=== PATIENT | female | born 1990 | race Caucasian/White ===

== ENCOUNTER → 2017-09-17 10:19 | Outpatient (CLI) | payer OTHER, SELFPAY ==
[2017-09-17 11:11] LABS: hCG Titer Quant., Serum 274 mIU/mL (<9 non-preg)
== END ==
PROVIDERS: Visit Provider Obstetrics & Gynecology
DX: O20.0 Threatened abortion (principal); Z3A.00 Weeks of gestation of pregnancy not specified
CPT/HCPCS: 36415; 84702; 86850; 86900

== ENCOUNTER → 2017-09-19 07:09 | Outpatient (CLI) | payer OTHER, SELFPAY ==
[2017-09-19 10:44] LABS: hCG Titer Quant., Serum 253 mIU/mL (<9 non-preg)
== END ==
PROVIDERS: Nurse Practitioner Women's Health; Visit Provider Obstetrics & Gynecology
DX: O20.0 Threatened abortion (principal); Z3A.00 Weeks of gestation of pregnancy not specified
CPT/HCPCS: 36415; 84702

== ENCOUNTER → 2017-10-02 17:00 | Outpatient (CLI) | payer OTHER, SELFPAY ==
[2017-10-02 18:04] LABS: hCG Titer Quant., Serum 29 mIU/mL (<9 non-preg)
== END ==
PROVIDERS: Visit Provider Obstetrics & Gynecology
DX: O03.9 Complete or unspecified spontaneous abortion without complication (principal); Z3A.00 Weeks of gestation of pregnancy not specified
CPT/HCPCS: 36415; 84702

== ENCOUNTER → 2018-03-26 16:33 | Outpatient (CLI) | payer OTHER, SELFPAY | PROVIDERS: Visit Provider Obstetrics & Gynecology | DX: N97.9 Female infertility, unspecified (principal) | CPT/HCPCS: 76856; 93976 ==

== ENCOUNTER → 2018-04-08 13:01 | Outpatient (CLI) | payer OTHER, SELFPAY ==
[2018-04-08 14:00] LABS: Follicle Stimulating Hormone 7.1 mIU/mL; Prolactin 13.9 ng/mL; T4 Free Direct 1.02 ng/dL (0.76-1.46); Thyroid Stim Hormone (TSH) 1.18 uIU/mL (0.358-3.74)
== END ==
PROVIDERS: Visit Provider Obstetrics & Gynecology
DX: N97.9 Female infertility, unspecified (principal)
CPT/HCPCS: 83001; 84146; 84439; 84443

== ENCOUNTER → 2018-04-13 12:00 | Outpatient (CLI) | payer OTHER, SELFPAY ==
--- NOTE | 2018-04-14 06:33 | PCM.OP.BLANK ---
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 Speculum was placed in the vagina and the cervix prepped with Betadine and the HSG catheter was easily introduced into the uterus and speculum removed. while pushing radiopaque dye into the uterus via the HSG catheter the radiologist took multiple images and views and confirmed bilateral tubal patency seen. No gross uterine filling defects or abnormalities were seen. All instruments removed from the vagina and the uterus without complication. Patient tolerated the procedure well.
== END ==
PROVIDERS: Visit Provider Obstetrics & Gynecology
DX: N97.9 Female infertility, unspecified (principal)
CPT/HCPCS: 58340; 74740; Q9967

== ENCOUNTER → 2018-05-31 14:28 | Outpatient (CLI) | payer OTHER, SELFPAY ==
[2018-05-31 16:17] LABS: hCG Titer Quant., Serum 75 mIU/mL (<9 non-preg)
== END ==
PROVIDERS: Referring Provider Obstetrics & Gynecology; Visit Provider Obstetrics & Gynecology
DX: N91.2 Amenorrhea, unspecified (principal)
CPT/HCPCS: 36415; 84702

== ENCOUNTER → 2018-06-02 14:30 | Outpatient (CLI) | payer OTHER, SELFPAY ==
[2018-06-02 15:26] LABS: hCG Titer Quant., Serum 200 mIU/mL (<9 non-preg)
== END ==
PROVIDERS: Visit Provider Obstetrics & Gynecology
DX: N91.2 Amenorrhea, unspecified (principal)
CPT/HCPCS: 36415; 84702

== ENCOUNTER → 2018-06-27 11:52 | Outpatient (CLI) | payer OTHER, SELFPAY ==
[2018-06-27 10:51] VITALS: BMI 24.4
[2018-06-27 12:20] LABS: Absolute Lymphocyte Count 1.75 X10^3/ul (0.83-4.51); Absolute Neutrophil Count 4.9 X10^3/uL (2.0-7.7); Basophil# 0.07 X10^3/uL; Eosinophil# 0.06 X10^3/uL; Eosinophils% 0.8 % (0-5); Hematocrit 38.7 % (37-47); Hemoglobin 13.5 g/dl (12.0-15.0); Lymphocyte # 1.75 X10^3/ul (4.0); Lymphocyte % 23.8 % (19-41); Mean Corp Hgb Conc 34.9 g/gl (32-36); Mean Corpuscular Hgb 29.9 pg (27.0-32.0); Mean Corpuscular Volume 85.6 fL (81-99); Mean Platelet Vol. 9.3 fl (6.2-12.0); Monocyte# 0.56 X10^3/uL; Monocyte% 7.6 % (0-10); Neutrophil # 4.89 X10^3/uL (2.7-7.7); Neutrophil % 66.7 % (47-70); Platelet Count 303 K/mm3 (150-450); RBC Distribution Width CV 12.1 % (11.6-14.6); RBC Distribution Width SD 36.9 fl (35.1-43.9); Red Blood Count 4.52 M/mm3 (4.2-5.4); White Blood Count 7.3 K/mm3 (4.4-11.0)
[2018-06-27 12:35] LABS: POSITIVE COUNT NO; POSITIVE DIFFERENTIAL NO; POSITIVE MORPHOLOGY NO
[2018-06-27 13:35] LABS: HIV - WCH Non-Reactive (Nonreactive); Rubella IgG > 500.0 IU/mL
[2018-06-27 19:42] LABS: Chlamydia Trachomatis by PCR Negative (Negative); Neisserai gonorrhoeae by PCR Negative (Negative); Probe Check PASS; Sample Adequacy Control PASS; Specimen Processing Control PASS
[2018-06-28 08:30] LABS: HEPATITIS B SURFACE AG Negative (Negative)
[2018-06-29 02:03] LABS: Rapid Plasmin Reagin (RPR) NONREACTIVE (NONREACTIVE)
[2018-07-03 16:58] LABS: HPV APTIMA, High Risk Negative (Negative)
== END ==
PROVIDERS: Nurse Practitioner Women's Health; Referring Provider Obstetrics & Gynecology; Visit Provider Obstetrics & Gynecology
DX: Z34.90 Encounter for supervision of normal pregnancy, unspecified, unspecified trimester (principal); Z12.4 Encounter for screening for malignant neoplasm of cervix
CPT/HCPCS: 36415; 85025; 86592; 86703; 86762; 86850; 86900; 87086; 87088; 87340; 87491; 87591; 87624; 88175; G0145

== ENCOUNTER → 2018-11-16 14:22 | Outpatient (CLI) | payer OTHER, SELFPAY ==
[2018-11-16 14:03] VITALS: BMI 28.6
[2018-11-16 15:11] LABS: Absolute Lymphocyte Count 1.48 X10^3/ul (0.83-4.51); Absolute Neutrophil Count 6.8 X10^3/uL (2.0-7.7); Basophil# 0.01 X10^3/uL; Basophil% 0.1 % (0-1); Eosinophil# 0.06 X10^3/uL; Eosinophils% 0.7 % (0-5); Hematocrit 33.8 % (37-47); Hemoglobin 11.4 g/dl (12.0-15.0); Lymphocyte # 1.48 X10^3/ul (4.0); Lymphocyte % 16.7 % (19-41); Mean Corp Hgb Conc 33.7 g/gl (32-36); Mean Corpuscular Hgb 29.6 pg (27.0-32.0); Mean Corpuscular Volume 87.8 fL (81-99); Mean Platelet Vol. 8.6 fl (6.2-12.0); Monocyte# 0.54 X10^3/uL; Monocyte% 6.1 % (0-10); Neutrophil # 6.75 X10^3/uL (2.7-7.7); Neutrophil % 76.2 % (47-70); POSITIVE COUNT NO; POSITIVE DIFFERENTIAL NO; POSITIVE MORPHOLOGY NO; Platelet Count 308 K/mm3 (150-450); RBC Distribution Width CV 12.8 % (11.6-14.6); RBC Distribution Width SD 39.8 fl (35.1-43.9); Red Blood Count 3.85 M/mm3 (4.2-5.4); White Blood Count 8.9 K/mm3 (4.4-11.0)
[2018-11-16 15:33] LABS: Glucose Challenge Gest 1H 50g 168 mg/dL (70-140)
== END ==
PROVIDERS: Visit Provider Obstetrics & Gynecology
DX: Z34.00 Encounter for supervision of normal first pregnancy, unspecified trimester (principal)
CPT/HCPCS: 36415; 82950; 85025

== ENCOUNTER → 2018-11-23 06:50 | Outpatient (CLI) | payer OTHER, SELFPAY ==
[2018-11-16 14:03] VITALS: BMI 28.6
[2018-11-23 07:39] LABS: Glucose GTT-Gestation. Fasting 85 mg/dL (<105)
[2018-11-23 08:37] LABS: Glucose GTT-Gestational 1 Hr 212 mg/dL (<190)
[2018-11-23 09:57] LABS: Glucose GTT-Gestational 2 Hr 203 mg/dL (<165)
[2018-11-23 11:05] LABS: Glucose GTT-Gestational 3 Hr 85 L (<145)
== END ==
PROVIDERS: Referring Provider Obstetrics & Gynecology; Visit Provider Obstetrics & Gynecology
DX: O99.810 Abnormal glucose complicating pregnancy (principal)
CPT/HCPCS: 36415; 82951; 82952

== ENCOUNTER 2018-11-28 09:57 | Outpatient (RCR) | payer OTHER, SELFPAY ==
[2018-11-16 14:03] VITALS: BMI 28.6
== END 2018-12-04 23:59 ==
LOC: NS 09:57
PROVIDERS: Visit Provider Obstetrics & Gynecology
DX: O24.419 Gestational diabetes mellitus in pregnancy, unspecified control (principal)
CPT/HCPCS: 97802

== ENCOUNTER 2018-12-06 15:58 | Outpatient (RCR) | payer OTHER, SELFPAY ==
[2018-11-29 15:31] VITALS: BMI 28.6
== END 2018-12-06 23:59 | disposition home or self-care (01) ==
LOC: DC 15:58
PROVIDERS: Visit Provider Obstetrics & Gynecology
DX: O24.419 Gestational diabetes mellitus in pregnancy, unspecified control (principal); Z3A.00 Weeks of gestation of pregnancy not specified
CPT/HCPCS: G0108

== ENCOUNTER → 2019-01-11 12:28 | Outpatient (CLI) | payer OTHER, SELFPAY ==
[2018-12-27 16:17] VITALS: BMI 28.6
--- NOTE | 2019-01-11 12:30 | US_ITS ---
STUDY: SECOND AND THIRD TRIMESTER OBSTETRICAL ULTRASOUND - LIMITED REASON FOR EXAM: Female, 28 years old. Growth. LMP: 05/02/2018 PRIOR ULTRASOUND: None. TECHNIQUE: Transabdominal. TECHNICAL QUALITY: Adequate. FINDINGS: There is a single intrauterine fetus. The fetus is in a cephalic presentation. There is demonstrated cardiac activity with a heart rate of 139 bpm. There is a normal amniotic fluid volume. The largest amniotic fluid pocket measures 5.4 cm. The amniotic fluid index (HERVE) is 13.0 cm. The placenta is fundal. There are Grade 2 placental changes. Cervix not visualized. Adnexa not visualized. BIOMETRY: BPD: 9.1 cm: 37 weeks, 0 days HC: 32.6 cm: 37 weeks, 0 days AC: 33.1 cm: 37 weeks, 0 days FL: 7.1 cm: 36 weeks, 5 days Calculated biometric ratios are within normal limits. Age by LMP: 36 weeks, 2 days. PIETER by LMP: 02/06/2019. age by prior US: weeks, days. PIETER by prior US: . age by current US: 37 weeks, 0 days. PIETER by current US: 02/01/2019. Estimated weight: 3054 grams, +/- 446 grams, 69 percentile. US/OB Limited With Biometrics IMPRESSION: Single living intrauterine gestation with an estimated gestational age by ultrasound of 37 weeks 0 days. Estimated date of delivery 02/01/2019 Electronically Signed: Timothy Hines MD at 4:14 EDT , Service support ,
== END ==
PROVIDERS: Referring Provider Obstetrics & Gynecology; Visit Provider Obstetrics & Gynecology
DX: Z34.00 Encounter for supervision of normal first pregnancy, unspecified trimester (principal)
CPT/HCPCS: 76816; 87081

== ENCOUNTER 2019-01-15 18:55 | Outpatient (CLI) | payer OTHER, SELFPAY ==
[2019-01-11 15:10] VITALS: BMI 28.6
[2019-01-15 19:12] VITALS: BMI 31.3
[2019-01-15 20:52] LABS: Hematocrit 38.1 % (37-47); Hemoglobin 12.9 g/dl (12.0-15.0); Mean Corp Hgb Conc 33.9 g/gl (32-36); Mean Corpuscular Hgb 29.6 pg (27.0-32.0); Mean Corpuscular Volume 87.4 fL (81-99); Mean Platelet Vol. 9.7 fl (6.2-12.0); Platelet Count 274 K/mm3 (150-450); RBC Distribution Width CV 13.3 % (11.6-14.6); RBC Distribution Width SD 42.6 fl (35.1-43.9); Red Blood Count 4.36 M/mm3 (4.2-5.4); White Blood Count 9.3 K/mm3 (4.4-11.0)
[2019-01-15 20:59] LABS: Scan Indicated on CBC? Y/N NO
[2019-01-15 21:02] LABS: International Normalized Ratio 0.9; Partial Thromboplast Time 26.1 Seconds (24.1-36.2)
[2019-01-15 21:02] LABS: Protein, Urine (Random) 6.7 mg/dL (<11.9); Protein:Creat Ratio 271 mg/g CRE (0-200)
[2019-01-15 21:04] LABS: AST(SGOT) 23 U/L (15-37); Alanine Aminotransfer ALT/SGPT 23 U/L (13-56); Creatinine, Serum 0.86 mg/dL (0.55-1.02); EST Glomerular Filtration Rate 82 mL/min (>60); Est Glom Filt Rate - Afr Amer 99 mL/min (>60); Estimated Creatinine Clearance 93.02 ml/min; Uric Acid 6.6 mg/dL (2.6-6.0)
[2019-01-15 22:17] VITALS: RESP 18
--- NOTE | 2019-01-20 04:16 | OB.TRI.PN ---
Progress Notes Date of Service: 01/15/19 Progress Note: Patient presents for vaginal bleeding, denies any significant contractions and admits good movement. She also complains of some intermittent headache heart tones 130 moderate variability reactive no decelerations category 1 tracing [place]: Irregular contractions Assessment and plan bleeding and headache, reassuring status and no active labor. Normal blood pressures DC home kick counts labor precautions and preeclampsia precautions Laboratory Studies: Laboratory Tests 01/15/19 01/15/19 01/15/19 Range/Units 20:24 20:24 20:24 WBC 9.3 (4.4-11.0) K/mm3 RBC 4.36 (4.2-5.4) M/mm3 Hgb 12.9 (12.0-15.0) g/dl Hct 38.1 (37-47) % MCV 87.4 (81-99) fL MCH 29.6 (27.0-32.0) pg MCHC 33.9 (32-36) g/gl RDW 13.3 (11.6-14.6) % RDW Differential 42.6 (35.1-43.9) fl Plt Count 274 (150-450) K/mm3 MPV 9.7 (6.2-12.0) fl PT 12.0 (11.7-14.9) SECONDS INR 0.9 APTT 26.1 (24.1-36.2) Seconds Creatinine 0.86 (0.55-1.02) mg/dL Estim Creat Clear Calc 93.02 ml/min Est GFR (MDRD) Af Amer 99 (>60) mL/min Est GFR (MDRD) Non-Af 82 (>60) mL/min Uric Acid 6.6 H (2.6-6.0) mg/dL AST 23 (15-37) U/L ALT 23 (13-56) U/L U Random Total Protein (<11.9) mg/dL Urine Creatinine (NO RANGE EST.) mg/dL Protein/Creatinin Ratio (0-200) mg/g CRE 01/15/19 Range/Units 20:20 WBC (4.4-11.0) K/mm3 RBC (4.2-5.4) M/mm3 Hgb (12.0-15.0) g/dl Hct (37-47) % MCV (81-99) fL MCH (27.0-32.0) pg MCHC (32-36) g/gl RDW (11.6-14.6) % RDW Differential (35.1-43.9) fl Plt Count (150-450) K/mm3 MPV (6.2-12.0) fl PT (11.7-14.9) SECONDS INR APTT (24.1-36.2) Seconds Creatinine (0.55-1.02) mg/dL Estim Creat Clear Calc ml/min Est GFR (MDRD) Af Amer (>60) mL/min Est GFR (MDRD) Non-Af (>60) mL/min Uric Acid (2.6-6.0) mg/dL AST (15-37) U/L ALT (13-56) U/L U Random Total Protein 6.7 (<11.9) mg/dL Urine Creatinine 24.70 (NO RANGE EST.) mg/dL Protein/Creatinin Ratio 271 H (0-200) mg/g CRE
== END 2019-01-15 22:17 | disposition home or self-care (01) ==
LOC: WPOUT 18:58 → WP 18:58
PROVIDERS: Visit Provider Obstetrics & Gynecology
DX: O46.90 Antepartum hemorrhage, unspecified, unspecified trimester (principal); Z3A.00 Weeks of gestation of pregnancy not specified
CPT/HCPCS: 36415; 59025; 59050; 82565; 82570; 84156; 84450; 84460; 84550; 85027; 85610; 85730; 99218; G0378

== ENCOUNTER → 2019-01-18 13:59 | Outpatient (CLI) | payer OTHER, SELFPAY ==
[2019-01-18 13:09] VITALS: BMI 31.8
[2019-01-18 14:45] LABS: Absolute Lymphocyte Count 2.21 X10^3/ul (0.83-4.51); Absolute Neutrophil Count 5.6 X10^3/uL (2.0-7.7); Basophil# 0.01 X10^3/uL; Basophil% 0.1 % (0-1); Eosinophil# 0.05 X10^3/uL; Eosinophils% 0.6 % (0-5); Hemoglobin 12.1 g/dl (12.0-15.0); Lymphocyte # 2.21 X10^3/ul (4.0); Lymphocyte % 26.1 % (19-41); Mean Corp Hgb Conc 33.6 g/gl (32-36); Mean Corpuscular Hgb 29.5 pg (27.0-32.0); Mean Corpuscular Volume 87.8 fL (81-99); Mean Platelet Vol. 9.9 fl (6.2-12.0); Monocyte# 0.55 X10^3/uL; Monocyte% 6.5 % (0-10); Neutrophil # 5.63 X10^3/uL (2.7-7.7); Neutrophil % 66.5 % (47-70); Platelet Count 257 K/mm3 (150-450); RBC Distribution Width CV 13.5 % (11.6-14.6); RBC Distribution Width SD 43.2 fl (35.1-43.9); White Blood Count 8.5 K/mm3 (4.4-11.0)
[2019-01-18 14:46] LABS: POSITIVE COUNT NO; POSITIVE DIFFERENTIAL NO; POSITIVE MORPHOLOGY NO
[2019-01-18 14:56] LABS: Protein, Urine (Random) < 6.0 mg/dL (<11.9)
[2019-01-18 15:07] LABS: ALB/GLOB Ratio 0.7 RATIO (0.9-2.4); AST(SGOT) 22 U/L (15-37); Alanine Aminotransfer ALT/SGPT 27 U/L (13-56); Albumin, Serum 2.4 g/dL (3.2-5.0); Alkaline Phosphatase 105 U/L (45-117); Anion Gap 9 (5-15); BUN 17 mg/dL (7-18); BUN/Creat Ratio 23.2 RATIO (10-20); Calcium,Total 8.5 mg/dL (8.5-10.1); Chloride 106 mmol/L (98-107); Creatinine, Serum 0.73 mg/dL (0.55-1.02); EST Glomerular Filtration Rate 99 mL/min (>60); Est Glom Filt Rate - Afr Amer 119 mL/min (>60); Globulin 3.6 g/dL (2.2-4.2); Glucose 88 mg/dL (74-106); Sodium Level 140 mmol/L (136-145)
== END ==
PROVIDERS: Referring Provider Obstetrics & Gynecology; Visit Provider Obstetrics & Gynecology
DX: O16.3 Unspecified maternal hypertension, third trimester (principal); Z3A.00 Weeks of gestation of pregnancy not specified
CPT/HCPCS: 36415; 80053; 82570; 84156; 85025

== ENCOUNTER 2019-01-20 03:25 | Inpatient (IN) | payer OTHER, SELFPAY ==
[2019-01-20 03:55] VITALS: BMI 31.8
--- NOTE | 2019-01-20 04:18 | PCM.HP.OB ---
- Problem List (1) Active labor at term Status: Acute (2) Elevated blood pressure affecting in third trimester, antepartum Status: Acute Comment: normal labs, recommend home bp checks and fu monday. recommend IOL if perstistently elevated (3) Gestational diabetes Status: Acute Qualifiers: Comment: diet, growth us at 36, deliver at 40 weeks (4) Status: Acute Qualifiers: Comment: carrier screening negative at [facility]. declines genetic and ntd screening. anatomy scan- Normal. 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 No treatment History Date of Admission: 01/20/19 Final PIETER: 02/10/19 Gestational age: 37 Weeks and 0 Days History of this : This is a 28 year-old, at 37 weeks gestational age presents in active labor 5 cm of dilation with clear loss of fluid. Patient has any significant vaginal bleeding, admits good movement and regular contractions every 3 to 4 minutes. She had a complicated by well-controlled gestational diabetes diet controlled. The last several days she has borderline elevated blood pressures and had a negative preeclampsia work-up.. Medical History: Medical History (Last Reviewed 01/18/19 @ 13:07 by Ayanna Diaz) MVP (mitral valve prolapse) I34.1 Allergies No Known Allergies Allergy (Verified 01/18/19 13:09) Home Medications: Home Medications vitamin#30 30 mg iron-10 mg iron-folic acid 1 mg-omg3 capsule 1 cap PO DAILY cap 06/27/18 miscellaneous medical supply misc See Dose Instructions .ROUTE .MEDSUPPLY #1 ea 01/18/19 Smoking Status: Never smoker Alcohol: None Number of Fetus(es): 1 Heart Tracin moderate variability no decelerations category I tracing Organ: regular History Past Pregnancies: Past Pregnancies previous early miscarriage Delivery Date Name GA/Weeks Outcome Route Weight Infant Gender Labor Length Anesthesia Delivery Location Provider FOB Labs: All Active Problems (Last Reviewed 01/18/19 @ 13:07 by Ayanna Diaz) Elevated blood pressure affecting in third trimester, antepartum (Acute) Gestational diabetes (Acute) (Acute) Supervision of normal first (Acute) Secondary female infertility (Resolved) Social History Smoking Status Never smoker Expected Delivery Method: Spontaneous Vaginal Review of Systems Constitutional: Denies: Fever, Malaise Eyes: Denies: Blurred vision, Vision Change HEENT: Denies: Head Aches, Visual Changes Cardiovascular: Denies: Chest Pain, Palpitations Respiratory: Denies: Cough, Shortness of Breath, Wheezing Gastrointestinal: Denies: Abdominal Pain, Diarrhea, Nausea, Vomiting Genitourinary: Denies: Dysuria, Hematuria Gynecological: Reports: Vaginal discharge Musculoskeletal: Denies: Joint Pain, Muscle pain Skin: Denies: Lesions, Rash Neurological: Denies: Blurred vision, Focal weakness, Headaches Psychiatric: Denies: Anxiety, Depression Endocrine: Denies: Heat/ Cold Intolerance Hematologic/ Lymphatic: Denies: Easy Bruising, Easy Bleeding Physical Exam General: Alert, Cooperative, No apparent distress HEENT: Atraumatic, Normocephalic. Negative for: Thyromegaly, Lymphadenopathy Cardiovascular: Regular rate Lungs: Normal air movement Abdomen: Soft, Non Tender, Gravid Neurological: Deep Tendon Reflexes 2+/4 and Symmetrical, Neuro grossly intact. Negative for: Clonus TAX ECONOMIST: Normal external genitalia. Negative for: Vulvar lesions Estimated gestational size: Appropriate for gestational size Presentation: Cephalic Cervix Dilation (cm): 5 Station: -1 Effacement (%): 90 Assessment/Plan All Active Problems (Last Reviewed 01/18/19 @ 13:07 by Ayanna Diaz) Active labor at term (Acute) Elevated blood pressure affecting in third trimester, antepartum (Acute) Gestational diabetes (Acute) (Acute) Supervision of normal first (Acute) Secondary female infertility (Resolved) This is a 28 year-old, at 37 weeks gestational age presents IAL. Patient presents IAL, plan expectant management for , pitocin/AROM PRN if needed. Pain management: Plans epidural. GBS negative. Management of any complications: Gestational diabetes diet controlled?check blood sugars q. one hour and treat appropriately. Check preeclampsia panel I have reviewed the [facility] and made any clinically relevant updates.
[2019-01-20] MEDS: Lactated Ringers 1,000 ML 50 ML IV ×3 (04:20→09:26)
--- NOTE | 2019-01-20 04:22 | HP.PCM_ITS ---
- Problem List (1) Active labor at term Status: Acute (2) Elevated blood pressure affecting in third trimester, antepartum Status: Acute Comment: normal labs, recommend home bp checks and fu monday. recommend IOL if perstistently elevated (3) Gestational diabetes Status: Acute Qualifiers: Comment: diet, growth us at 36, deliver at 40 weeks (4) Status: Acute Qualifiers: Comment: carrier screening negative at [facility]. declines genetic and ntd screening. anatomy scan- Normal. 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 No treatment History Date of Admission: 01/20/19 Final PIETER: 02/10/19 Gestational age: 37 Weeks and 0 Days History of this : This is a 28 year-old, at 37 weeks gestational age presents in active labor 5 cm of dilation with clear loss of fluid. Patient has any significant vaginal bleeding, admits good movement and regular contractions every 3 to 4 minutes. She had a complicated by well-controlled gestational diabetes diet controlled. The last several days she has borderline elevated blood pressures and had a negative preeclampsia work-up.. Medical History: Medical History (Last Reviewed 01/18/19 @ 13:07 by Ayanna Diaz) MVP (mitral valve prolapse) I34.1 Allergies No Known Allergies Allergy (Verified 01/18/19 13:09) Home Medications: Home Medications vitamin#30 30 mg iron-10 mg iron-folic acid 1 mg-omg3 capsule 1 cap PO DAILY cap 06/27/18 miscellaneous medical supply misc See Dose Instructions .ROUTE .MEDSUPPLY #1 ea 01/18/19 Smoking Status: Never smoker Alcohol: None Number of Fetus(es): 1 Heart Tracin moderate variability no decelerations category I tracing [place]: regular History Past Pregnancies: Past Pregnancies previous early miscarriage Delivery Date Name GA/Weeks Outcome Route Weight Infant Gender Labor Length Anesthesia Delivery Location Provider FOB Labs: All Active Problems (Last Reviewed 01/18/19 @ 13:07 by Ayanna Diaz) Elevated blood pressure affecting in third trimester, antepartum (Acute) Gestational diabetes (Acute) (Acute) Supervision of normal first (Acute) Secondary female infertility (Resolved) Social History Smoking Status Never smoker Expected Delivery Method: Spontaneous Vaginal Review of Systems Constitutional: Denies: Fever, Malaise Eyes: Denies: Blurred vision, Vision Change HEENT: Denies: Head Aches, Visual Changes Cardiovascular: Denies: Chest Pain, Palpitations Respiratory: Denies: Cough, Shortness of Breath, Wheezing Gastrointestinal: Denies: Abdominal Pain, Diarrhea, Nausea, Vomiting Genitourinary: Denies: Dysuria, Hematuria Gynecological: Reports: Vaginal discharge Musculoskeletal: Denies: Joint Pain, Muscle pain Skin: Denies: Lesions, Rash Neurological: Denies: Blurred vision, Focal weakness, Headaches Psychiatric: Denies: Anxiety, Depression Endocrine: Denies: Heat/ Cold Intolerance Hematologic/ Lymphatic: Denies: Easy Bruising, Easy Bleeding Physical Exam General: Alert, Cooperative, No apparent distress HEENT: Atraumatic, Normocephalic. Negative for: Thyromegaly, Lymphadenopathy Cardiovascular: Regular rate Lungs: Normal air movement Abdomen: Soft, Non Tender, Gravid Neurological: Deep Tendon Reflexes 2+/4 and Symmetrical, Neuro grossly intact. Negative for: Clonus CLINICAL EVALUATOR: Normal external genitalia. Negative for: Vulvar lesions Estimated gestational size: Appropriate for gestational size Presentation: Cephalic Cervix Dilation (cm): 5 Station: -1 Effacement (%): 90 Assessment/Plan All Active Problems (Last Reviewed 01/18/19 @ 13:07 by Ayanna Diaz) Active labor at term (Acute) Elevated blood pressure affecting in third trimester, antepartum (Acute) Gestational diabetes (Acute) (Acute) Supervision of normal first (Acute) Secondary female infertility (Resolved) This is a 28 year-old, at 37 weeks gestational age presents IAL. Patient presents IAL, plan expectant management for , pitocin/AROM PRN if needed. Pain management: Plans epidural. GBS negative. Management of any complications: Gestational diabetes diet controlled?check blood sugars q. one hour and treat appropriately. Check preeclampsia panel I have reviewed the [facility] and made any clinically relevant updates.
[2019-01-20 04:39] VITALS: BMI 31.1
[2019-01-20 04:51] LABS: Absolute Lymphocyte Count 2.01 X10^3/ul (0.83-4.51); Absolute Neutrophil Count 6.6 X10^3/uL (2.0-7.7); Basophil# 0.01 X10^3/uL; Basophil% 0.1 % (0-1); Eosinophil# 0.09 X10^3/uL; Eosinophils% 0.9 % (0-5); Hematocrit 36.1 % (37-47); Hemoglobin 12.3 g/dl (12.0-15.0); International Normalized Ratio 0.9; Lymphocyte # 2.01 X10^3/ul (4.0); Lymphocyte % 20.5 % (19-41); Mean Corp Hgb Conc 34.1 g/gl (32-36); Mean Corpuscular Hgb 29.6 pg (27.0-32.0); Mean Corpuscular Volume 86.8 fL (81-99); Mean Platelet Vol. 10.1 fl (6.2-12.0); Monocyte# 1.05 X10^3/uL; Monocyte% 10.7 % (0-10); Neutrophil % 67.4 % (47-70); Platelet Count 274 K/mm3 (150-450); Prothrombin Time (Protime)PT. 12.1 SECONDS (11.7-14.9); RBC Distribution Width CV 13.2 % (11.6-14.6); RBC Distribution Width SD 40.9 fl (35.1-43.9); Red Blood Count 4.16 M/mm3 (4.2-5.4); White Blood Count 9.8 K/mm3 (4.4-11.0)
[2019-01-20 04:52] LABS: Partial Thromboplast Time 27.1 Seconds (24.1-36.2)
[2019-01-20 04:54] LABS: ROM Internal Control Test YES-OK TO RESULT pt. (Internal QC); ROM Patient Test POSITIVE (Negative)
[2019-01-20 04:55] LABS: POSITIVE COUNT NO; POSITIVE DIFFERENTIAL NO; POSITIVE MORPHOLOGY NO
[2019-01-20 05:04] LABS: AST(SGOT) 22 U/L (15-37); Alanine Aminotransfer ALT/SGPT 25 U/L (13-56); Creatinine, Serum 0.67 mg/dL (0.55-1.02); EST Glomerular Filtration Rate 110 mL/min (>60); Est Glom Filt Rate - Afr Amer 133 mL/min (>60); Uric Acid 5.9 mg/dL (2.6-6.0)
[2019-01-20] MEDS: fentaNYL-bupivacaine (epidural) 100 ML BAG EPIDURAL (05:32)
[2019-01-20 06:35] LABS: Bedside Glucose 81 mg/dL (70-110)
[2019-01-20 06:35] LABS: Bedside Glucose 72 mg/dL (70-110)
[2019-01-20 06:51] LABS: Bedside Glucose 87 mg/dL (70-110)
[2019-01-20 07:23] LABS: Protein, Urine (Random) 14.4 mg/dL (<11.9); Protein:Creat Ratio 322 mg/g CRE (0-200)
[2019-01-20 08:06] LABS: Bedside Glucose 101 mg/dL (70-110)
[2019-01-20 08:51] LABS: Bedside Glucose 75 mg/dL (70-110)
[2019-01-20 09:51] LABS: Bedside Glucose 62 mg/dL (70-110)
[2019-01-20 10:56] LABS: Bedside Glucose 54 mg/dL (70-110)
--- NOTE | 2019-01-20 11:11 | PLAC_PTH ---
PATIENT: NOA CERON LOC: WP U#:[id number] AGE/SX: 28/F ROOM: WP008 RE01/20/[address]: Dr. Alicia Abdalla MD : 1990 BED: 1 DIS: 01/22/2019 SPEC #: [id number] RECD: 01/20/19 13:16 STATUS: NEVA PRISCILLA #: [id number] ARTIE: 01/20/19 11:[address]: Alicia Abdalla DEPT: SURGICAL PATHOLOGY RECD BY: Darci Alvarez ENTERED: 01/21/19 10:09 SP TYPE: PLACENTA OTHR DR: No Primary Care Phys Tissues: Placenta, NOS Procedures: Surgery Specimen Level V HEADER OPERATION: Vaginal delivery PRE-OP DIAGNOSIS: Routine TISSUE SUBMITTED: Placenta MICROSCOPIC DIAGNOSIS Rush placenta (430 gm): Umbilical cord - trivascular with no inflammation. Placental membranes - no evidence of inflammation. Placental disc - Papito-Patrice change and mildly increased intraparenchymal fibrin plaques. AM:tona 01/22/19 MICROSCOPIC DESCRIPTION Slides are reviewed. GROSS DESCRIPTION SPECIMEN: PLACENTA / CLINICAL INFORMATION: A. Weight: 2.972 kg B. Gestational Age: 37 weeks C. Sex: Female PLACENTAL WEIGHT (POST FIXATION): 430 gm PLACENTAL DIMENSIONS: 18 x 17 x 3 cm PLACENTAL SHAPE: Usual ovoid PLACENTAL WEIGHT FOR GESTATIONAL AGE: Within 10-99th percentile MEMBRANES - Present A. Insertion: Marginal B. Site of rupture from edge: At edge of placental disc C. Color of membrane: Benjamin-murguia D. Abnormalities: None UMBILICAL CORD - Present A. Color: Benjamin-murguia B. Insertion: Near central C. Length: 33 cm D. Diameter: 1.3 cm E. Number of vessels: Three F. Abnormalities: None PLACENTAL DISC - Present A. Color of surface: Benjamin-murguia B. surface abnormalities: None C. Maternal cotyledons: Intact with minimal tears D. Attached retro placental clot: No clot E. Cut surface: Dark red and spongy F. Lesions: There is a submembranous hematoma measuring 13 x 11 x 1.1 cm G. Separate clot: Absent SECTIONS SUBMITTED: 1. Umbilical cord ( end inked) 2. Membrane roll 3. Placental disc, and maternal surfaces 4. Placental disc, and maternal surfaces 5. Placental disc, and maternal surfaces AM:tona 01/21/19 TC:5 CPT: 33362
[2019-01-20] MEDS: Oxytocin 30 units/NS 500 ml 30 UNITS/500 ML IV.SOLN 334 UNITS IV (11:24)
[2019-01-20] MEDS: Oxytocin 30 units/NS 500 ml 30 UNITS/500 ML IV.SOLN 167 UNITS IV (11:54)
--- NOTE | 2019-01-20 11:56 | CPS ---
critical value called to Leah CAUSEY.
--- NOTE | 2019-01-20 12:05 | PCM.OPRPT ---
Problem List (1) Active labor at term Status: Acute (2) Elevated blood pressure affecting in third trimester, antepartum Status: Acute Comment: normal labs, recommend home bp checks and fu monday. recommend IOL if perstistently elevated (3) Gestational diabetes Status: Acute Qualifiers: Comment: diet, growth us at 36, deliver at 40 weeks (4) Status: Acute Qualifiers: Comment: carrier screening negative at [facility]. declines genetic and ntd screening. anatomy scan- Normal. 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 No treatment Vaginal Delivery Maternal Presentation: Active Labor 28 yo @ 37 weeks presents IAL SROM Amniotic Membrane Rupture Type: Spontaneous at home Amniotic Fluid Description: Clear Final PIETER: 02/10/19 Gestational age: 37 Weeks and 0 Days Date of Procedure: 01/20/19 Pre-Operative Diagnosis: ial Post-Operative Diagnosis: same Surgery/ Procedure Performed: Vacuum Assisted Vaginal Delivery Type of Anesthesia: Epidural Description of Procedure: Patient began pushing and developed several variables follow by a prolonged decel into the 60s at which the head was at a +2 station, vacuum applied infant in LOP and with 1 popoff and pulls with 3 minutes, right mediolateral episiotomy was cut and she delivered the head in the LOP presentation. The head was delivered atraumatically. The anterior and posterior shoulders delivered without complication followed by the rest of the and the was placed on the maternal abdomen. Delayed cord clamping was employed for approximately 60 seconds. Cord was clamped and cut and gentle traction was applied to the cord and the placenta delivered spontaneously immediately following it was noted to be intact with three-vessel cord. The perineum and vagina were inspected and the episiotomy was at a 2nd degree level but very close to the sphincter capsule so 2-0 PDS sutures were placed to support the surrounding tissue and then the laceration was repaired in the usual fashion. EBL was 700 cc. Patient and infant tolerated delivery well. Presentation: ROP Placental Delivery Description: Spontaneous Placenta Disposition: [facility] Cord Vessel Description: 3 Vessels Cord Entanglement: None Estimated Blood Loss: 700 A gender: Male Episiotomy Description: Right Mediolateral, 2nd degree Laceration: Right Mediolateral, 2nd degree Medications given after delivery: IV Pitocin Complications: None
--- NOTE | 2019-01-20 12:14 | OP.PCM_ITS ---
Problem List (1) Active labor at term Status: Acute (2) Elevated blood pressure affecting in third trimester, antepartum Status: Acute Comment: normal labs, recommend home bp checks and fu monday. recommend IOL if perstistently elevated (3) Gestational diabetes Status: Acute Qualifiers: Comment: diet, growth us at 36, deliver at 40 weeks (4) Status: Acute Qualifiers: Comment: carrier screening negative at [facility]. declines genetic and ntd screening. anatomy scan- Normal. 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 No treatment Vaginal Delivery Maternal Presentation: Active Labor 28 yo @ 37 weeks presents IAL SROM Amniotic Membrane Rupture Type: Spontaneous at home Amniotic Fluid Description: Clear Final PIETER: 02/10/19 Gestational age: 37 Weeks and 0 Days Date of Procedure: 01/20/19 Pre-Operative Diagnosis: ial Post-Operative Diagnosis: same Surgery/ Procedure Performed: Vacuum Assisted Vaginal Delivery Type of Anesthesia: Epidural Description of Procedure: Patient began pushing and developed several variables follow by a prolonged decel into the 60s at which the head was at a +2 station, vacuum applied infant in LOP and with 1 popoff and pulls with 3 minutes, right mediolateral episiotomy was cut and she delivered the head in the LOP presentation. The head was delivered atraumatically. The anterior and posterior shoulders delivered without complication followed by the rest of the and the was placed on the maternal abdomen. Delayed cord clamping was employed for approximately 60 seconds. Cord was clamped and cut and gentle traction was applied to the cord and the placenta delivered spontaneously immediately follo wing it was noted to be intact with three-vessel cord. The perineum and vagina were inspected and the episiotomy was at a 2nd degree level but very close to the sphincter capsule so 2-0 PDS sutures were placed to support the surrounding tissue and then the laceration was repaired in the usual fashion. EBL was 700 cc. Patient and tolerated delivery well. Presentation: ROP Placental Delivery Description: Spontaneous Placenta Disposition: [facility] Cord Vessel Description: 3 Vessels Cord Entanglement: None Estimated Blood Loss: 700 Infant A gender: Male Episiotomy Description: Right Mediolateral, 2nd degree Laceration: Right Mediolateral, 2nd degree Medications given after delivery: IV Pitocin Complications: None
[2019-01-20 13:35] LABS: Bedside Glucose 79 mg/dL (70-110)
[2019-01-20] MEDS: Ibuprofen 600 MG Tablet PO ×2 (15:11→21:40)
[2019-01-20 17:30] VITALS: BP 130/90; PULSE 108; RESP 16; TEMP 37.3
[2019-01-20 20:03] VITALS: BP 123/78; PULSE 93; RESP 18; TEMP 36.6; O2SAT 99
[2019-01-20] MEDS: Acetaminophen 500 MG Tablet 1000 MG PO (20:05)
[2019-01-21 00:30] VITALS: BP 114/59; PULSE 96; RESP 18; TEMP 36.6; O2SAT 97
[2019-01-21 04:30] VITALS: BP 123/81; PULSE 96; RESP 18; TEMP 36.1; O2SAT 96
[2019-01-21 06:00] LABS: Pathology Specimen OB SEE PATHOLOGY REPORT
[2019-01-21 06:51] LABS: Bedside Glucose 85 mg/dL (70-110)
[2019-01-21] MEDS: Ibuprofen 600 MG Tablet PO ×3 (06:51→21:02)
--- NOTE | 2019-01-21 08:00 | PCM.PN.OB ---
Patient Problems: Active and Suspected Problems (Last Reviewed 01/18/19 @ 13:07 by Ayanna Diaz) Active labor at term (Acute) Subjective: doing well no complaints pain controlled no CP SOB N V ambulating well tolerating po lochia moderate, going well - Physical Exam General: Alert, Oriented x3 Abdomen: Soft, Non Tender, Non-Distended, - - FF below U Vital Signs Temp Pulse Resp BP Pulse Ox 96.9 F L 96 18 123/81 H 96 01/21/19 04:30 01/21/19 04:30 01/21/19 04:30 01/21/19 04:30 01/21/19 04:30 Oxygen Delivery Method Room Air Weight: 198 lb 6.656 oz Body Mass Index (BMI) 31.1 Intake and Output for Last 24 Hours 01/19/19 01/20/19 01/21/19 23:59 23:59 23:59 Intake Total 3225 / 3225 Output Total 2500 / 2500 Balance 725 / 725 POC Glucose 01/21/19 01/20/19 01/20/19 06:42 13:32 10:51 POC Glucose 85 79 54 L 01/20/19 01/20/19 01/20/19 09:36 08:36 07:39 POC Glucose 62 L 75 101 Medical Necessity - Tobacco Use Smoking Status: Never smoker Assessment/Plan All Active Problems (Last Reviewed 01/18/19 @ 13:07 by Ayanna Diaz) Active labor at term (Acute) Elevated blood pressure affecting in third trimester, antepartum (Acute) Gestational diabetes (Acute) (Acute) Supervision of normal first (Acute) Secondary female infertility (Resolved) s/p VAVD PPD # 1 1. routine post delivery care 2. breast feeding- support given 3. rh positive 4. rubella immune 5. Glucose WNL 6. BP WNL
[2019-01-21 08:24] VITALS: BP 135/75; PULSE 96; RESP 16; TEMP 36.6
[2019-01-21 14:00] VITALS: BP 115/69; PULSE 98; RESP 16; TEMP 36.6
[2019-01-21] MEDS: Acetaminophen 500 MG Tablet 1000 MG PO (17:44)
[2019-01-21 20:45] VITALS: BP 133/90; PULSE 88; RESP 18; TEMP 36.2
[2019-01-22] MEDS: Acetaminophen 500 MG Tablet 1000 MG PO ×2 (01:50→12:10)
[2019-01-22 02:00] VITALS: BP 139/83; PULSE 94; RESP 18; TEMP 36.2
[2019-01-22] MEDS: Ibuprofen 600 MG Tablet PO ×3 (03:02→13:42)
--- NOTE | 2019-01-22 07:40 | PCM.PN.OB ---
Patient Problems: Active and Suspected Problems (Last Reviewed 01/18/19 @ 13:07 by Ayanna Diaz) Active labor at term (Acute) Subjective: doing well no complaints pain controlled no CP SOB N V ambulating well tolerating po lochia moderate, going well - Physical Exam General: Alert, Oriented x3 Abdomen: Soft, Non Tender, Non-Distended, - - FF below U Vital Signs Temp Pulse Resp BP Pulse Ox 97.1 F L 94 18 139/83 H 96 01/22/19 02:00 01/22/19 02:00 01/22/19 02:00 01/22/19 02:00 01/21/19 04:30 Oxygen Delivery Method Room Air Weight: 198 lb 6.656 oz Body Mass Index (BMI) 31.1 Intake and Output for Last 24 Hours 01/20/19 01/21/19 01/22/19 23:59 23:59 23:59 Intake Total 3225 / 3225 Output Total 2500 / 2500 Balance 725 / 725 Medical Necessity - Tobacco Use Smoking Status: Never smoker Assessment/Plan All Active Problems (Last Reviewed 01/18/19 @ 13:07 by Ayanna Diaz) Active labor at term (Acute) Elevated blood pressure affecting in third trimester, antepartum (Acute) Gestational diabetes (Acute) (Acute) Supervision of normal first (Acute) Secondary female infertility (Resolved) s/p PPD # 2 1. routine post delivery care 2. breast feeding- support given 3. rh positive 4. rubella immune 5. stool softener encouraged 6. home today
--- NOTE | 2019-01-22 07:42 | DCINST_ITS ---
Additional Instructions: If you experience any of the following, contact your healthcare provider. * Bleeding that soaks a pad every hour for 2 hours * Fever 100.4 or higher * Unrelieved incision or abdominal pain * Swelling, redness, discharge or bleeding from your incision or episiotomy site * Your incision begins to separate * Problems urinating (including inability to urinate or burning while urinating). * Visual changes * Severe headache * Flu-like symptoms * Pain or redness in one of both of your breasts * Pain, warmth, tenderness or swelling in your legs, especially the calf area * Frequent nausea and vomiting * Symptoms of depression or anxiety If you experience any of the following, call 911 or go to the nearest Emergency Room. * Chest pain * Problems breathing * Seizure activity * Partial or complete paralysis of a body part, slurred speech, weakness or drooping of the face, or a sudden inability to walk or hold your balance Allergies/Adverse Reactions: Allergies No Known Allergies Allergy (Verified 01/18/19 13:09) Medications to take at Discharge vitamin#30 30 mg iron-10 mg iron-folic acid 1 mg-omg3 capsule 1 cap PO DAILY cap 06/27/18 miscellaneous medical supply misc See Dose Instructions .ROUTE .MEDSUPPLY #1 ea 01/18/19 Primary Care Physician: Care Physician,No Primary [Primary Care Provider] - Test Results: Test results from this visit will be discussed in further detail at your follow- up appointment, if applicable.
--- NOTE | 2019-01-22 07:42 | PCM.DCVAG ---
Additional Instructions: If you experience any of the following, contact your healthcare provider. Bleeding that soaks a pad every hour for 2 hours Fever 100.4 or higher Unrelieved incision or abdominal pain Swelling, redness, discharge or bleeding from your incision or episiotomy site Your incision begins to separate Problems urinating (including inability to urinate or burning while urinating). Visual changes Severe headache Flu-like symptoms Pain or redness in one of both of your breasts Pain, warmth, tenderness or swelling in your legs, especially the calf area Frequent nausea and vomiting Symptoms of depression or anxiety If you experience any of the following, call 911 or go to the nearest Emergency Room. Chest pain Problems breathing Seizure activity Partial or complete paralysis of a body part, slurred speech, weakness or drooping of the face, or a sudden inability to walk or hold your balance Allergies/Adverse Reactions: Allergies No Known Allergies Allergy (Verified 01/18/19 13:09) Medications to take at Discharge vitamin#30 30 mg iron-10 mg iron-folic acid 1 mg-omg3 capsule 1 cap PO DAILY cap 06/27/18 miscellaneous medical supply misc See Dose Instructions .ROUTE .MEDSUPPLY #1 ea 01/18/19 Primary Care Physician: Care Physician,No Primary [Primary Care Provider] - Test Results: Test results from this visit will be discussed in further detail at your follow-up appointment, if applicable.
[2019-01-22 08:00] VITALS: BP 136/79; PULSE 80; RESP 20; TEMP 36.3
[2019-01-22] MEDS: Senna/Docusate Sodium 1 Tablet PO (08:22)
[2019-01-22 10:00] VITALS: BP 136/79; PULSE 80; RESP 20; TEMP 36.3
== END 2019-01-22 13:55 | disposition home or self-care (01) | DRG 807 ==
PROVIDERS: Admitting Provider Obstetrics & Gynecology; Referring Provider Obstetrics & Gynecology; Visit Provider Obstetrics & Gynecology
DX: O24.420 Gestational diabetes mellitus in childbirth, diet controlled (principal); R03.0 Elevated blood-pressure reading, without diagnosis of hypertension; O70.1 Second degree perineal laceration during delivery; O76 Abnormality in fetal heart rate and rhythm complicating labor and delivery; Z3A.37 37 weeks gestation of pregnancy; Z37.0 Single live birth
CPT/HCPCS: 59025; 59050; 82565; 82570; 82962; 84112; 84156; 84450; 84460; 84550; 85025; 85610; 85730; 86850; 86900; 88307; 99218; J7120; G0378

== ENCOUNTER → 2019-01-23 10:45 | Day surgery (SDC) | payer OTHER, SELFPAY ==
[2019-01-20 04:39] VITALS: BMI 31.1
== END ==
PROVIDERS: Referring Provider Anesthesiology; Visit Provider Anesthesiology
PROC: 3E0R3GC Introduction of Other Therapeutic Substance into Spinal Canal, Percutaneous Approach (ICD-10-PCS; CPT 62273; principal; 2019-01-23 08:55)
DX: G97.1 Other reaction to spinal and lumbar puncture (principal); Y84.4 Aspiration of fluid as the cause of abnormal reaction of the patient, or of later complication, without mention of misadventure at the time of the procedure; Y92.9 Unspecified place or not applicable
CPT/HCPCS: 62273; J7120

== ENCOUNTER → 2019-03-08 10:02 | Outpatient (CLI) | payer OTHER, SELFPAY ==
[2019-03-04 15:25] VITALS: BMI 31.1
[2019-03-08 13:13] LABS: Glucose 2 Hour Postprandial 95 mg/dL (<140)
--- NOTE | 2019-03-08 14:33 | US_ITS ---
STUDY: ULTRASOUND BREAST - RIGHT REASON FOR EXAM: Female, 28 years old. Palpable lump in the right breast. The patient is presently nursing. TECHNIQUE: Axial and longitudinal images of the RIGHT breast were performed with a high resolution ultrasound transducer. COMPARISON: None. FINDINGS: RIGHT Breast: Dense heterogeneous breast tissue. No solid or cystic mass lesion is seen. US/Breast Limited Unilateral IMPRESSION: No sonographic abnormality is seen. ASSESSMENT CATEGORY: BIRADS Category 1: Negative. A letter regarding these results will be sent to the patient by the facility within 30 days. Electronically Signed: Garrett Mejia, at 15:26 EDT , Service support ,
== END ==
PROVIDERS: Referring Provider Obstetrics & Gynecology; Visit Provider Obstetrics & Gynecology
DX: N63.10 Unspecified lump in the right breast, unspecified quadrant (principal); O24.419 Gestational diabetes mellitus in pregnancy, unspecified control; Z3A.00 Weeks of gestation of pregnancy not specified
CPT/HCPCS: 36415; 76642; 82950

== ENCOUNTER → 2019-03-25 14:35 | Outpatient (CLI) | payer OTHER, SELFPAY ==
[2019-03-04 15:25] VITALS: BMI 31.1
== END ==
PROVIDERS: Referring Provider Obstetrics & Gynecology; Visit Provider Obstetrics & Gynecology
DX: Z39.1 Encounter for care and examination of lactating mother (principal)
CPT/HCPCS: 96152

== ENCOUNTER → 2020-04-15 08:17 | Outpatient (CLI) | payer OTHER, SELFPAY ==
[2020-04-09 08:50] VITALS: BMI 31.1
[2020-04-15 09:29] LABS: Absolute Lymphocyte Count 1.77 X10^3/uL (0.83-4.51); Absolute Neutrophil Count 2.8 X10^3/uL (2.0-7.7); Basophil# 0.03 X10^3/uL; Basophil% 0.6 % (0-1); Eosinophil# 0.11 X10^3/uL; Eosinophils% 2.1 % (0-5); Hematocrit 43.1 % (37-47); Hemoglobin 13.8 g/dL (12.0-15.0); Lymphocyte # 1.77 X10^3/ul (4.0); Mean Corpuscular Hgb 28.1 pg (27.0-32.0); Mean Corpuscular Volume 87.8 fL (81-99); Mean Platelet Vol. 9.1 fl (6.2-12.0); Monocyte# 0.49 X10^3/uL; Monocyte% 9.4 % (0-10); NRBC Flagged by Analyzer 0 % (0-5); Neutrophil # 2.79 X10^3/uL (2.7-7.7); Neutrophil % 53.7 % (47-70); Platelet Count 338 K/mm3 (150-450); RBC Distribution Width CV 11.9 % (11.6-14.6); Red Blood Count 4.91 M/mm3 (4.2-5.4); White Blood Count 5.2 K/mm3 (4.4-11.0)
[2020-04-15 10:07] LABS: Cholesterol 176 mg/dL (200); Glucose 84 mg/dL (74-106); High Density Lipoprotein 69 mg/dL; Thyroid Stim Hormone (TSH) 1.73 uIU/mL (0.358-3.74); Triglycerides 84 mg/dL; Very Low Density Lipoprotein 17 mg/dL (5-40)
== END ==
PROVIDERS: PCP Student in an Organized Health Care Education/Training Program; Referring Provider Obstetrics & Gynecology; Visit Provider Obstetrics & Gynecology
DX: Z01.411 Encounter for gynecological examination (general) (routine) with abnormal findings (principal); Z13.1 Encounter for screening for diabetes mellitus; Z13.220 Encounter for screening for lipoid disorders; Z13.29 Encounter for screening for other suspected endocrine disorder
CPT/HCPCS: 36415; 80061; 82947; 84443; 85025

== ENCOUNTER → 2020-08-13 08:17 | Outpatient (CLI) | payer OTHER, SELFPAY ==
[2020-07-20 09:30] VITALS: BMI 28.3
[2020-08-13 10:45] LABS: Progesterone Level 10.37 ng/mL (See Comment)
== END ==
PROVIDERS: PCP Student in an Organized Health Care Education/Training Program; Referring Provider Obstetrics & Gynecology; Visit Provider Obstetrics & Gynecology
DX: N92.6 Irregular menstruation, unspecified (principal)
CPT/HCPCS: 36415; 84144

== ENCOUNTER → 2020-08-25 10:57 | Outpatient (CLI) | payer OTHER, SELFPAY ==
[2020-07-20 09:30] VITALS: BMI 28.3
[2020-08-25 13:21] LABS: hCG Titer Quant., Serum 19 mIU/mL (1-3)
== END ==
PROVIDERS: PCP Student in an Organized Health Care Education/Training Program; Referring Provider Obstetrics & Gynecology; Visit Provider Obstetrics & Gynecology
DX: Z32.01 Encounter for pregnancy test, result positive (principal)
CPT/HCPCS: 36415; 84702

== ENCOUNTER → 2020-08-27 11:03 | Outpatient (CLI) | payer OTHER, SELFPAY ==
[2020-07-20 09:30] VITALS: BMI 28.3
[2020-08-27 12:31] LABS: hCG Titer Quant., Serum 5 mIU/mL (1-3)
== END ==
PROVIDERS: PCP Student in an Organized Health Care Education/Training Program; Referring Provider Obstetrics & Gynecology; Visit Provider Obstetrics & Gynecology
DX: Z32.01 Encounter for pregnancy test, result positive (principal)
CPT/HCPCS: 36415; 84702

== ENCOUNTER → 2020-10-09 | Outpatient (CLI) | payer OTHER, SELFPAY ==
[2020-07-20 09:30] VITALS: BMI 28.3
== END | disposition home or self-care (01) ==
LOC: LABSPEC 14:52
PROVIDERS: PCP Student in an Organized Health Care Education/Training Program; Referring Provider Internal Medicine Gastroenterology; Visit Provider Internal Medicine Gastroenterology
DX: Z11.59 Encounter for screening for other viral diseases (principal)
CPT/HCPCS: 87635; C9803; U0002

== ENCOUNTER → 2020-11-24 08:09 | Outpatient (CLI) | payer OTHER, SELFPAY ==
[2020-07-20 09:30] VITALS: BMI 28.3
[2020-11-24 08:47] LABS: hCG Titer Quant., Serum 523 mIU/mL (1-3)
== END ==
PROVIDERS: PCP Student in an Organized Health Care Education/Training Program; Referring Provider Obstetrics & Gynecology; Visit Provider Obstetrics & Gynecology
DX: N91.2 Amenorrhea, unspecified (principal)
CPT/HCPCS: 36415; 84702

== ENCOUNTER → 2020-11-26 08:03 | Outpatient (CLI) | payer OTHER, SELFPAY ==
[2020-07-20 09:30] VITALS: BMI 28.3
[2020-11-26 10:05] LABS: hCG Titer Quant., Serum 1313 mIU/mL (1-3)
== END ==
PROVIDERS: PCP Student in an Organized Health Care Education/Training Program; Referring Provider Obstetrics & Gynecology; Visit Provider Obstetrics & Gynecology
DX: N91.2 Amenorrhea, unspecified (principal)
CPT/HCPCS: 36415; 84702

== ENCOUNTER → 2020-12-15 | Outpatient (CLI) | payer OTHER, SELFPAY ==
[2020-12-15 14:04] VITALS: BMI 28.3
[2020-12-15 18:21] LABS: Amphetamine Urine VISTA NEGATIVE (<1000 ng/mL); Barbiturate Urine VISTA NEGATIVE (< 200 ng/mL); Benzodiazepine Urine VISTA NEGATIVE (< 200 ng/mL); Cocaine Urine VISTA NEGATIVE (< 300 ng/mL); Ecstacy Urine VISTA NEGATIVE (< 500 ng/mL); Methadone Urine VISTA NEGATIVE (< 300 ng/mL); PCP Urine VISTA NEGATIVE (< 25 ng/mL); THC Urine VISTA NEGATIVE (< 50 ng/mL); Vista UDS pH Range 6
[2020-12-18 03:07] LABS: Chlamydia By Nucleic Acid AMP Negative (Negative)
[2020-12-18 12:41] LABS: Gonococcus By Nucleic Acid AMP Negative (Negative)
== END | disposition home or self-care (01) ==
PROVIDERS: PCP Student in an Organized Health Care Education/Training Program; Referring Provider Obstetrics & Gynecology; Visit Provider Obstetrics & Gynecology
DX: Z34.90 Encounter for supervision of normal pregnancy, unspecified, unspecified trimester (principal); Z11.3 Encounter for screening for infections with a predominantly sexual mode of transmission
CPT/HCPCS: 80307; 87086; 87088; 87491; 87591

== ENCOUNTER → 2020-12-25 | Outpatient (CLI) | payer OTHER, SELFPAY ==
[2020-12-25 13:05] VITALS: BMI 28.3
== END | disposition home or self-care (01) ==
LOC: LABSPEC 16:54
PROVIDERS: PCP Student in an Organized Health Care Education/Training Program; Visit Provider Obstetrics & Gynecology
DX: R30.0 Dysuria (principal)
CPT/HCPCS: 87086; 87088

== ENCOUNTER → 2021-01-13 10:07 | Outpatient (CLI) | payer OTHER, SELFPAY ==
[2020-12-25 13:05] VITALS: BMI 28.3
[2021-01-13 10:30] LABS: Absolute Neutrophil Count 5.7 X10^3/uL (2.0-7.7); Basophil# 0.02 X10^3/uL; Basophil% 0.3 % (0-1); Eosinophils% 1.3 % (0-5); Hemoglobin 12.8 g/dL (12.0-15.0); Lymphocyte % 17.8 % (19-41); Mean Corp Hgb Conc 34.6 g/dL (32-36); Mean Corpuscular Hgb 29.8 pg (27.0-32.0); Mean Platelet Vol. 9.1 fl (6.2-12.0); Monocyte# 0.57 X10^3/uL; Monocyte% 7.3 % (0-10); NRBC Flagged by Analyzer 0 % (0-5); Neutrophil # 5.74 X10^3/uL (2.7-7.7); Neutrophil % 72.9 % (47-70); Platelet Count 296 K/mm3 (150-450); RBC Distribution Width CV 12.4 % (11.6-14.6); White Blood Count 7.9 K/mm3 (4.4-11.0)
[2021-01-13 10:55] LABS: Glucose Challenge Gest 1H 50g 121 mg/dL (70-140)
[2021-01-13 11:41] LABS: HIV - WCH Non-Reactive (Nonreactive); Hepatitis B Surface Antigen Non-Reactive (Nonreactive); Hepatitis C Antibody Non-Reactive (Nonreactive); Rubella IgG Reactive (Nonreactive); Syphilis Antibodies Non-reactive
== END ==
PROVIDERS: PCP Student in an Organized Health Care Education/Training Program; Referring Provider Obstetrics & Gynecology; Visit Provider Obstetrics & Gynecology
DX: Z34.90 Encounter for supervision of normal pregnancy, unspecified, unspecified trimester (principal)
CPT/HCPCS: 36415; 82950; 85025; 86703; 86762; 86780; 86803; 86850; 86900; 86901; 87340

== ENCOUNTER → 2021-05-05 08:54 | Outpatient (CLI) | payer OTHER, SELFPAY ==
[2021-05-05 09:50] LABS: Absolute Neutrophil Count 6.5 X10^3/uL (2.0-7.7); Basophil# 0.01 X10^3/uL; Basophil% 0.1 % (0-1); Eosinophil# 0.06 X10^3/uL; Eosinophils% 0.7 % (0-5); Hematocrit 33.9 % (37-47); Hemoglobin 11.2 g/dL (12.0-15.0); Lymphocyte % 15.4 % (19-41); Mean Corpuscular Hgb 29.6 pg (27.0-32.0); Mean Corpuscular Volume 89.4 fL (81-99); Mean Platelet Vol. 8.7 fl (6.2-12.0); Monocyte% 5.9 % (0-10); NRBC Flagged by Analyzer 0 % (0-5); Neutrophil # 6.54 X10^3/uL (2.7-7.7); Neutrophil % 77.5 % (47-70); Platelet Count 294 K/mm3 (150-450); RBC Distribution Width CV 12.9 % (11.6-14.6); RBC Distribution Width SD 42.3 fl (35.1-43.9); Red Blood Count 3.79 M/mm3 (4.2-5.4); White Blood Count 8.4 K/mm3 (4.4-11.0)
[2021-05-05 09:59] LABS: Glucose Challenge Gest 1H 50g 143 mg/dL (70-140)
== END ==
PROVIDERS: PCP Student in an Organized Health Care Education/Training Program; Referring Provider Nurse Practitioner Women's Health; Visit Provider Nurse Practitioner Women's Health
DX: Z34.91 Encounter for supervision of normal pregnancy, unspecified, first trimester (principal); Z3A.12 12 weeks gestation of pregnancy; Z13.1 Encounter for screening for diabetes mellitus
CPT/HCPCS: 36415; 82950; 85025

== ENCOUNTER → 2021-07-05 | Outpatient (CLI) | payer OTHER, SELFPAY | END | disposition home or self-care (01) | LOC: LABSPEC 16:53 | PROVIDERS: PCP Student in an Organized Health Care Education/Training Program; Referring Provider Obstetrics & Gynecology; Visit Provider Obstetrics & Gynecology | DX: Z34.93 Encounter for supervision of normal pregnancy, unspecified, third trimester (principal) | CPT/HCPCS: 87081 ==

== ENCOUNTER 2021-07-10 17:55 | Outpatient (CLI) | payer OTHER, SELFPAY ==
[2021-07-10 18:08] VITALS: BP 127/81; PULSE 96; PULSE 97; O2SAT 98; BMI 33.5
[2021-07-10 18:19] VITALS: TEMP 36.4
--- NOTE | 2021-07-22 08:18 | OB.TRI.HP_ITS ---
HPI - General HPI Narrative NOA CERON, is a 31 F who presents on 07/10/2021 with the complaint of contractions. PFSH PFSH Medical History (Updated 07/22/21 @ 08:[address] 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 H/O gestational diabetes in prior , currently Low-lying placenta in second trimester MVP (mitral valve prolapse) Supervision of other normal Home Medications vitamin#30 30 mg iron-10 mg iron-folic acid 1 mg-omg3 capsule 1 cap PO DAILY cap 06/27/18 [History Last Taken 07/10/21 10:00] sertraline 50 mg tablet 50 mg PO DAILY 01/16/20 [History Last Taken 07/11/21 07:00] docusate sodium [Colace] 100 mg PO DAILY 15 Days #15 cap 07/11/21 [Rx Last Taken Unknown] ibuprofen 800 mg PO Q8H PRN 7 Days #30 tab 07/11/21 [Rx Last Taken Unknown] Allergy/AdvReac Type Severity Reaction Status Date / Time No Known Allergies Allergy Verified 07/18/21 09:26 Family History Mother MVP (mitral valve prolapse) Grandmother Diabetes Breast cancer Cancer Brain Father Testicle cancer Heart disease Grandfather esophageal Cancer esophageal Surgical History (Updated 07/11/21 @ 13:10 by Lorelei Yousif) History of surgery Social History household members: family housing: house number of children: 1 current occupational status: employed current occupation: [employer] history of recent travel: No sexually active: Yes current gender identity: female Smoking Status: Never smoker second hand exposure: No alcohol intake: current details: social- not while substance use type: does not use caffeine: Yes frequency: 3-4 times per week seatbelt use: always do you feel safe at home: Yes 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 Date Name GA/Weeks Outcome Route Bth Weight Infant Gen Labor Lgth Anesthesia Del Locatn Provider FOB 01/20/19 Isela 37 live - full term vacuum Female ep idural [facility] JERED Homero 07/11/21 37 live - full term vacuum [facility] Farzaneh Harris Delivery Date: 01/20/19 GDMA- GHTN at previous appointment prior to delivery; right mediolateral episiotomy- 2nd degree laceration Annmarie Hart Delivery Date: 07/11/21 No notes to display ROS Constitutional Constitutional: Reports systems reviewed and no addt'l complaints, except as documented Gastrointestinal Gastrointestinal: Denies bloating, constipation, cramping, diarrhea, nausea or vomiting Genitourinary Genitourinary: Reports other Details: Denies vaginal odor, vaginal bleeding, or vaginal discharge ; Denies difficulty urinating or flank pain Physical Exam HEENT normocephalic Resp normal respiratory effort and normal air movement no CVA tenderness Extremity normal to inspection General Extremity: edema bilateral (trace ) NST FHR Rate Baby A Baseline: 140 Variability:: Moderate Accelerations:: 15 x 15 Decelerations:: None NST Reactive:: Yes FHR Category:: Category I Assessment & Plan (1) False labor: PLAN: Patient presents for triage evaluation secondary to false labor. There was no c ervical change during her stay FHT: variability reactive no decelerations category I tracing [place]: irregular Contractions Assessment and plan: Reactive NST, reassuring maternal and status patient discharged to home to follow-up. See problem list details for additional plan information. Charges/Coding Multi Select Codes Visit Charges Office Visit/Consults: 24168 OV L3 Est Urinary/Genital Urinary/Genital CPT Codes: 30475-61 non-stress test Interp
--- NOTE | 2021-07-24 09:03 | OB.TRI.NOTE ---
HPI - General HPI Narrative NOA CERON, is a 31 F who presents on 07/10/2021 with the complaints of contractions. She denies lof, vaginal bleeding or dec fm PFSH PFSH Medical History (Updated 07/22/21 @ 08:[address] 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 H/O gestational diabetes in prior , currently Low-lying placenta in second trimester MVP (mitral valve prolapse) Supervision of other normal Home Medications vitamin#30 30 mg iron-10 mg iron-folic acid 1 mg-omg3 capsule 1 cap PO DAILY cap 06/27/18 [History Last Taken 07/10/21 10:00] sertraline 50 mg tablet 50 mg PO DAILY 01/16/20 [History Last Taken 07/11/21 07:00] docusate sodium [Colace] 100 mg PO DAILY 15 Days #15 cap 07/11/21 [Rx Last Taken Unknown] ibuprofen 800 mg PO Q8H PRN 7 Days #30 tab 07/11/21 [Rx Last Taken Unknown] Allergy/AdvReac Type Severity Reaction Status Date / Time No Known Allergies Allergy Verified 07/18/21 09:26 Family History Mother MVP (mitral valve prolapse) Grandmother Diabetes Breast cancer Cancer Brain Father Testicle cancer Heart disease Grandfather esophageal Cancer esophageal Surgical History (Updated 07/11/21 @ 13:10 by Lorelei Yousif) History of surgery Social History household members: family housing: house number of children: 1 current occupational status: employed current occupation: [employer] history of recent travel: No sexually active: Yes current gender identity: female Smoking Status: Never smoker second hand exposure: No alcohol intake: current details: social- not while substance use type: does not use caffeine: Yes frequency: 3-4 times per week seatbelt use: always do you feel safe at home: Yes 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 Date Name GA/Weeks Outcome Route Bth Weight Infant Gen Labor Lgth Anesthesia Del Locatn Provider FOB 01/20/19 Isela 37 live - full term vacuum Female epidural [facility] JERED Homero 07/11/21 37 live - full term vacuum [facility] Farzaneh Harris Delivery Date: 01/20/19 GDMA- GHTN at previous appointment prior to delivery; right mediolateral episiotomy- 2nd degree laceration Annmarie Hart Delivery Date: 07/11/21 No notes to display ROS Constitutional Constitutional: Reports systems reviewed and no addt'l complaints, except as documented Gastrointestinal Gastrointestinal: Denies bloating, constipation, cramping, diarrhea, nausea or vomiting Genitourinary Genitourinary: Reports other Details: Denies vaginal odor, vaginal bleeding, or vaginal discharge ; Denies difficulty urinating or flank pain Physical Exam HEENT normocephalic Resp normal respiratory effort and normal air movement no CVA tenderness Extremity normal to inspection General Extremity: edema bilateral (trace ) NST FHR Rate Baby A Baseline: 130 Variability:: Moderate Accelerations:: 15 x 15 Decelerations:: None NST Reactive:: Yes FHR Category:: Category I Uterine Activity:: irregular, mild contractions Assessment & Plan (1) False labor: PLAN: labor precautions discussed. Kick counts reviewed Labor precautions and Kick counts reviewed -return to office for routine ob appt or to L&D for contractions that are 5 min apart, can't walk or talk through the contractions, leaking fluid, decreased movement, or vaginal bleeding.-return to office for routine ob appt and for contractions that are 5 min apart, can't walk or talk through the contractions, leaking fluid, decreased movement, or vaginal bleeding. Charges/Coding Multi Select Codes Visit Charges Office Visit/Consults: 44206 OV L3 Est Urinary/Genital Urinary/Genital CPT Codes: 79536-27 non-stress test Interp
== END 2021-07-10 19:50 | disposition home or self-care (01) ==
LOC: WPOUT 17:57 → WP 17:58
PROVIDERS: PCP Student in an Organized Health Care Education/Training Program; Visit Provider Obstetrics & Gynecology
DX: O47.9 False labor, unspecified (principal); O99.340 Other mental disorders complicating pregnancy, unspecified trimester; F32.A Depression, unspecified; F41.9 Anxiety disorder, unspecified; Z79.899 Other long term (current) drug therapy; Z86.39 Personal history of other endocrine, nutritional and metabolic disease; Z3A.00 Weeks of gestation of pregnancy not specified
CPT/HCPCS: 59025; 59050; 99218; G0378

== ENCOUNTER 2021-07-11 12:05 | Inpatient (IN) | payer OTHER, SELFPAY ==
[2021-07-11] VITALS (33 sets, daily range): BP systolic 105–130; BP diastolic 58–87; PULSE 73–108; RESP 18; TEMP 36.5–37.1; O2SAT 97–100; BMI 33.6
--- NOTE | 2021-07-11 12:30 | HP.PCM.OB_ITS ---
HPI - General General Date of Admission: 07/11/21 HPI Narrative NOA CERON, is a 31 y/o @ 37 weeks 4 days who presents in active labor. L&D nurse, Ena checked her when she arrived and she was found to be 5 cm dilated with a bulging bag intact and requesting an epidural. 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 H/O gestational diabetes in prior , currently Low-lying placenta in second trimester MVP (mitral valve prolapse) Supervision of other normal Home Medications vitamin#30 30 mg iron-10 mg iron-folic acid 1 mg-omg3 capsule 1 cap PO DAILY cap 06/27/18 [History Last Taken 01/14/19 21:00] sertraline 50 mg tablet 50 mg PO DAILY 01/16/20 [History Last Taken Unknown] Allergy/AdvReac Type Severity Reaction Status Date / Time No Known Allergies Allergy Verified 07/09/21 09:36 Family History Mother MVP (mitral valve prolapse) Grandmother Diabetes Breast cancer Cancer Brain Father Testicle cancer Heart disease Grandfather esophageal Cancer esophageal Social History household members: family housing: house number of children: 1 current occupational status: employed current occupation: [employer] history of recent travel: No sexually active: Yes Smoking Status: Never smoker second hand exposure: No alcohol intake: current details: social- not while substance use type: does not use caffeine: Yes frequency: 3-4 times per week seatbelt use: always do you feel safe at home: Yes additional social history: Homero- Teacher History 4 Elective abortions Hx Para 1 Spontaneous abortions 2 Hx # Term Pregnancies Ectopic pregnancies Hx # Pregnancies Multiple births # of living children 1 Past Pregnancies Del. Date Name GA/Weeks Outcome Route Bth Weight Infant Gen Labor Lgth Anesthesia Del Locatn Provider FOB 01/20/19 Isela 37 live - full term vacuum Female ep idural [facility] Homero Delivery Date: 01/20/19 GDMA- GHTN at previous appointment prior to delivery; right mediolateral episiotomy- 2nd degree laceration Annmarie Hart Visit Details Expected Delivery Route/Plan Labor Preferences- CB/BF classes: no labor support person: Homero labor intervention preferences: [] pain management options preferred: epidural cut cord/dad catch: maybe : yes PP control planned: discussed discussed possible routes of delivery and associated risks: [] special requests: [] Plans covid status: vaccinated flu vaccine: given tdap vaccine: given rhogam: na LARC form signed: yes movement and labor precautions reviewed. Problem list reviewed and updated with the most current plan of care details and appropriate orders placed. Relevant counseling for the gestational age provided. Continue routine care and follow up unless otherwise noted in visit notes/problem list details OB Flowsheet Initial Weight: Not Recorded Date -?-?-?-?-?-?-?-?-?-?-?-?- EGA Weight BP Urine Prot -?-?-?-?-?-?-?-?-?-?-?-?- Glucose FHR FuHt Pres Dilation -?-?-?-?-?-?-?-?-?-?-?-?- Effaced St Visit Note 01/13/21 -?-?-?-?-?-?-?-?-?-?-?-?- 12w 0d 181 lb 4 oz 110/80 Nega tive -?-?-?-?-?-?-?-?-?-?-?-?- Negative 150 -?-?-?-?-?-?-?-?-?-?-?-?- GP - no cramping or bleeding. Anatomy ordered. 02/10/21 -?-?-?-?-?-?-?-?-?-?-?-?- 16w 0d 187 lb 118/66 Negative -?-?-?-?-?-?-?-?-?-?-?-?- Negative 146 -?-?-?-?-?-?-?-?-?-?-?-?- MH-No Vb, LOF. A natomy US 03/04. 03/15/21 -?-?-?-?-?-?-?-?-?-?-?-?- 20w 5d 191 lb 4 oz 120/78 Nega tive -?-?-?-?-?-?-?-?-?-?-?-?- Negative 145 -?-?-?-?-?-?-?-?-?-?-?-?- GP - no cramping or bleeding. F/U anatomy done today - told placental 1.2cm from cervix. Awaiting report. 04/14/21 -?-?-?-?-?-?-?-?-?-?-?-?- 25w 0d 203 lb 6 oz 134/76 Nega tive -?-?-?-?-?-?-?-?-?-?-?-?- Negative 151 25 -?-?-?-?-?-?-?-?-?-?-?-?- -No VB, LOF. G ood FM. 28 wk US sched 05/06 to recheck low lying placenta. 05/10/21 -?-?-?-?-?-?-?-?-?-?-?-?- 28w 5d 205 lb 102/82 Negative -?-?-?-?-?-?-?-?-?-?-?-?- Negative 135 30 -?-?-?-?-?-?-?-?-?-?-?-?- - no vb lof go od fm no regular ctx reviewed BS 05/25/21 -?-?-?-?-?-?-?-?-?-?-?-?- 30w 6d 205 lb 118/70 Negative -?-?-?-?-?-?-?-?-?-?-?-?- Negative 161 32 -?-?-?-?-?-?-?-?-?-?-?-?- MH-NO VB, LOF. G ood FM. Larc. 06/07/21 -?-?-?-?-?-?-?-?-?-?-?-?- 32w 5d 110/80 Negative -?-?-?-?-?-?-?-?-?-?-?-?- Negative 145 34 -?-?-?-?-?-?-?-?-?-?-?-?- SM- no vb lof go od fm no regular ctx. 06/21/21 -?-?-?-?-?-?-?-?-?-?-?-?- 34w 5d 211 lb 136/72 Negative -?-?-?-?-?-?-?-?-?-?-?-?- Negative 138 35 -?-?-?-?-?-?-?-?-?-?-?-?- MH-NO VB, LOF. C hecking FBS: couple elevated/states did eat sugar night before. Will watch closer. Will review results with SM and call patient if changes needed. 07/05/21 -?-?-?-?-?-?-?-?-?-?-?-?- 36w 5d 214 lb 110/83 -?-?-?-?-?-?-?-?-?-?-?-?- 140 39 Cephalic 1 -?-?-?-?-?-?-?-?-?-?-?-?- 60 -2 SM- no vb lof good fm no regular ctx gbs done 07/09/21 -?-?-?-?-?-?-?-?-?-?-?-?- 37w 2d 216 lb 126/74 Negative -?-?-?-?-?-?-?-?-?-?-?-?- Negative -?-?-?-?-?-?-?-?-?-?-?-?- bp check only WN L 07/11/21 -?-?-?-?-?-?-?-?-?-?-?-?- 37w 4d 214 lb 11.684 oz -?-?-?-?-?-?-?-?-?-?-?-?- -?-?-?-?-?-?-?-?-?-?-?-?- NST FHR Rate Baby A Baseline: 145 Variability:: Moderate Accelerations:: 15 x 15 Decelerations:: None NST Reactive:: Yes FHR Category:: Category I Uterine Activity:: q1-3 min ROS Constitutional Constitutional: Denies change in weight, fatigue, fever(s), headache(s), poor appetite or weakness Eyes Eyes: Denies blurry vision, change in vision, seeing flashes or spots in vision ENT HEENT: Denies dizziness, headache(s), loss taste/smell or sore throat Cardiovascular Cardiovascular: Denies chest pain, dizziness, dyspnea, irregular heart rhythm, leg edema, palpitations, rapid heart rate or vomiting Respiratory/Chest Respiratory/Chest: Denies chest tightness, cough, dyspnea or breast pain Gastrointestinal Gastrointestinal: Denies abdominal pain, anorexia, constipation, cramping, diarrhea, hemorrhoids, vomiting or weight changes Genitourinary Genitourinary: Denies dysuria, flank pain, genital lesions, genital pain, urinary frequency or urinary urgency Musculoskeletal Musculoskeletal: Denies back pain, difficulty walking, joint pain, limited range of motion, muscle cramps or numbness Integumentary Integumentary: Denies lesions or unusual bruising Neurologic Neurologic: Denies abnormal movements, abnormal speech, dizziness, numbness, seizure-like activity or syncope Psychiatric Psychiatric: Denies anxiety, behavioral changes, change in appetite, change in libido, cognitive impairment, confusion, depression, difficulty concentrating, hallucinations or suicidal thoughts Endocrine Endocrinology: Denies excessive sweating, polydipsia or polyuria Hematologic/Lymphatic Hematologic/Lymphatic: Denies easy bleeding, easy bruising or lymphadenopathy Allergic/Immunologic Allergic/Immunologic: Denies itchy eyes, lip swelling, seasonal rhinorrhea, rhinitis, throat swelling, tongue swelling, eczemia, wheezing or asthma Vital Signs Vital Signs Vital Signs: Weight Weight: 214 lb 11.684 oz Body Mass Index (BMI) 33.6 Physical Exam Const alert, oriented x3, no apparent distress and healthy appearing General Appearance: cooperative; Negative for anxious HEENT normocephalic Face and Sinus: normal facial exam Eyes EOMs intact bilaterally and no scleral icterus General Eye: normal appearance of both eyes Neck full ROM and supple Lymph Lymphatic: no lymphadenopathy noted Chest Chest: abnormal inspection of the chest Resp normal respiratory effort Effort and Inspection: able to speak in complete sentences Cardio regular rate GI soft to palpation and non-tender Inspection: gravid Palpation: soft; Negative for tender external exam normal Amniotic Fluid: ROM+plus Back/Spine no CVA tenderness Extremity normal to inspection, full ROM and no clubbing, cyanosis or edema General Extremity: Negative for calf tenderness or edema Skin Lesions: no lesions Rashes: no rashes Psych mental status grossly normal Labs Labs Labs: Blood Type O POSITIVE Antibody Screen NEGATIVE Hct 33.9 % (37-47) L Hgb 11.2 g/dL (12.0-15.0) L Obstetrics US Syphilis Total Ab Non-reactive Rubella IgG Antibody Reactive (Nonreactive) Hep Bs Antigen Non-Reactive (Nonreactive) Neisseria gonorrhoeae DNA (RAJENDRA) Negative (Negative) HIV 1&2 Antibody Non-Reactive (Nonreactive) C.trachomatis DNA (PCR) Negative (Negative) Glucose 1 Hr 50 gm 143 mg/dL (70-140) H Rhogam given: No Assessment & Plan (1) Contraception management: COMMENT: considering IUD (2) Abnormal glucose affecting : COMMENT: declined 3 hr GTT, pt has chose to test 4x daily, all WNL. continuing repeat testing PRN. (3) : QUALIFIERS: Weeks of gestation: 37 weeks Qualified Code(s): Z3A.37 - 37 weeks gestation of COMMENT: genetic, carrier, and ntd screening declined. anatomy nl. GBS NEG (4) Supervision of other normal : COMMENT: PRR PIETER: 07/28/21 surprise PC: Isela Spouse:Homero (5) H/O gestational diabetes in prior , currently : COMMENT: Nl gct at [facility] (6) Anxiety and depression: COMMENT: currently on Zoloft; 05/25 stable PLAN: Patient presents IAL, plan expectant management for , pitocin/AROM PRN if needed. Pain management: plans epidural. GBS negative Management of any complications: none I have reviewed the [facility] and made any clinically relevant updates.
[2021-07-11] MEDS: Lactated Ringers 500 ML 999 ML IV (12:40)
[2021-07-11 12:55] LABS: Absolute Lymphocyte Count 1.61 X10^3/uL (0.83-4.51); Absolute Neutrophil Count 8.6 X10^3/uL (2.0-7.7); Basophil# 0.02 X10^3/uL; Basophil% 0.2 % (0-1); Eosinophil# 0.06 X10^3/uL; Eosinophils% 0.5 % (0-5); Hematocrit 39.3 % (37-47); Hemoglobin 13.4 g/dL (12.0-15.0); Lymphocyte # 1.61 X10^3/ul (0.83-4.51); Lymphocyte % 14.2 % (19-41); Mean Corp Hgb Conc 34.1 g/dL (32-36); Mean Corpuscular Hgb 29.3 pg (27.0-32.0); Mean Platelet Vol. 9.7 fl (6.2-12.0); Monocyte# 1.06 X10^3/uL; Monocyte% 9.3 % (0-10); NRBC Flagged by Analyzer 0 % (0-5); Neutrophil # 8.55 X10^3/uL (2.7-7.7); Neutrophil % 75.4 % (47-70); Platelet Count 258 K/mm3 (150-450); RBC Distribution Width CV 13.4 % (11.6-14.6); RBC Distribution Width SD 41.5 fl (35.1-43.9); Red Blood Count 4.57 M/mm3 (4.2-5.4); White Blood Count 11.4 K/mm3 (4.4-11.0)
[2021-07-11 13:11] LABS: Bedside Glucose 74 mg/dL (70-110)
[2021-07-11] MEDS: Lactated Ringers 1,000 ML 50 ML IV (13:12)
[2021-07-11] MEDS: fentaNYL-bupivacaine (epidural) 100 ML BAG EPIDURAL (14:18)
[2021-07-11] MEDS: Oxytocin 30 units/NS 500 ml 30 UNITS/500 ML IV.SOLN 334 UNITS IV (16:03)
--- NOTE | 2021-07-11 16:20 | EX.PCM.OBRPT ---
Maternal Data Information PIETER Calculator Estimated Delivery Date Method Current WG Current Estimate 07/28/21 LMP (Certain) 37w 4d Vaginal Delivery Maternal Presentation Maternal Presentation: Active Labor Type of Induction: Amniotomy Operative Information Date of Procedure: 07/11/21 Pre-Operative Diagnosis: 37 weeks 4 days in active labor Post-Operative Diagnosis: 37 weeks 4 days in active labor Surgery / Procedure Performed: Vacuum Assisted Vaginal Delivery Type of Anesthesia: Epidural Drain: Cabrera to straight drain Estimated Blood Loss: 100cc Time of Delivery: 16:12 Findings Description of Procedure: Patient began pushing and delivered the head in the OP presentation. The heart tones were noted to be down in the 60's over several minutes and the use of the vacuum device was discussed. Consent was obtained. The kiwi vacuum was applied to the infants head infront of the posterior fontanelle with the 's head in the +3 station. The first pull resulted in a pop off. A mediolateral episiotomy was created and the next pull resulted in delivery of the infant's head. The head was delivered atraumatically. The anterior and posterior shoulders delivered without complication followed by the rest of the and the infant was placed on the maternal abdomen. Delayed cord clamping was employed for approximately 60 seconds. Cord was clamped and cut and gentle traction was applied to the cord and the placenta delivered spontaneously immediately following it was noted to be intact with three-vessel cord. The perineum and vagina were inspected and noted to have a 2nd degree perineal laceration. This was repaired using a 2-0 vicryl suture . EBL was 100 cc. Patient and tolerated delivery well. Presentation: Vertex Amniotic Membrane Rupture Type: Artificial Amniotic Fluid Description: Clear Placental Delivery Description: Spontaneous Placenta Disposition: [facility] Cord Vessel Description: 3 Vessels Cord Entanglement: None A Gender: Female (1 minute): 8 (5 minute): 9 Delayed Cord Clamping: Yes Post Vaginal Delivery Medications Given After Delivery: IV Pitocin Episiotomy Description: Right Mediolateral and 2nd degree Complication Complications: None Admit VTE Documentation VTE Present on Admission: No Multi Select Codes Urinary/Genital Urinary/Genital CPT Codes: 90462 delivery [facility]
--- NOTE | 2021-07-11 16:27 | PCM.DC ---
Discharge Instructions Diet Discharge Diet: No restrictions Activity Discharge Activity: Return to Normal Activity, May Not Drive (while taking narcotic pain medications.) and May Shower May resume sexual activity in: 4-6 weeks Dressing / Incision Call your doctor if your incision/area has: Continuous Slow Oozing, Sudden Increased Bleeding, Increased Pain/ Swelling, Increased Redness and Foul Smelling Discharge Follow Up Care Please Follow Up With: Irma Vera DO When: Call [phone] to make an appointment with your doctor in 6 weeks. If you had elevated blood pressure or 4th degree laceration, you will need to be seen in 2 weeks. Test Results: Test results from this visit will be discussed in further detail at your follow-up appointment, if applicable. Discharge Plan Admission Admit Date/Time: 07/11/21 12:05 Attending Provider: Irma Vera Primary Care Provider: Valeriy Donahue Discharge Orders/Prescriptions Prescriptions: New ibuprofen 800 mg tablet 800 mg PO Q8H PRN (Reason: pain) 7 Days Qty: 30 RF: 0 docusate sodium [Colace] 100 mg capsule 100 mg PO DAILY 15 Days Qty: 15 RF: 0 Continued vitamin#30 30 mg iron-10 mg iron-folic acid 1 mg-omg3 capsule 30 mg iron-10 mg iron-1 mg capsule 1 cap PO DAILY RF: 0 sertraline [Zoloft] 50 mg tablet 50 mg PO DAILY RF: 0 Referrals / Follow Up: Valeriy Donahue DO [Primary Care Provider] - Disposition Disposition (needs filled in before D/C Order can be placed): Home, Self Care
[2021-07-11] MEDS: Acetaminophen 500 MG Tablet PO (19:50)
[2021-07-12] VITALS (9 sets, daily range): BP systolic 114–144; BP diastolic 69–86; PULSE 72–85; RESP 16–18; TEMP 36.6–37; O2SAT 98
[2021-07-12] MEDS: Ibuprofen 400 MG Tablet 800 MG PO ×2 (00:39→10:26)
--- NOTE | 2021-07-12 08:15 | PN.OBGYN_ITS ---
Subjective Subjective Patient doing well without complaints. Tolerating PO. Ambulating and voiding without difficulty. feeding well. Denies chest pain, shortness of breath, calf pain/swelling, fevers, chills, lightheadedness. Objective Data Objective Data Vital Signs: Vital Signs Temp Pulse Resp BP Pulse Ox 98 F 85 18 114/72 98 07/12/21 04:42 07/12/21 04:43 07/12/21 04:42 07/12/21 04:43 07/11/21 19:21 Oxygen Delivery Method Room Air Weight: 214 lb 11.684 oz Body Mass Index (BMI) 33.6 Intake & Output: Intake and Output for Last 24 Hours 07/10/21 07/11/21 07/12/21 23:59 23:59 23:59 Intake Total 1512.50 / 1512.50 Balance 1512.50 / 1512.50 Lab / Micro Data Result Diagrams: 07/11/21 12:40 Labs: Laboratory Results - last 24 hr 07/11/21 12:40: WBC 11.4 H, RBC 4.57, Hgb 13.4, Hct 39.3, MCV 86.0, MCH 29.3, MCHC 34.1, RDW Std Deviation 41.5, RDW Coeff of Yuliya 13.4, Plt Count 258, MPV 9.7, Immature Gran % (Auto) 0.400, Neut % (Auto) 75.4 H, Lymph % (Auto) 14.2 L, [place] % (Auto) 9.3, Eos % (Auto) 0.5, Baso % (Auto) 0.2, Absolute Neuts (auto) 8.6 H, Absolute Lymphs (auto) 1.61, Nucleated RBC % 0 07/11/21 12:40: Blood Type O POSITIVE, Antibody Screen NEGATIVE 07/11/21 13:02: POC Glucose 74 Micro: Microbiology 07/11/21 12:50 Nasal Secretion SARS-CoV-2 Antigen (Rapid) - Final ROS Constitutional Constitutional: Reports systems reviewed and no addt'l complaints, except as documented Cardiovascular Cardiovascular: Reports systems reviewed and no addt'l complaints, except as documented Respiratory/Chest Respiratory/Chest: Reports systems reviewed and no addt'l complaints, except as documented Gastrointestinal Gastrointestinal: Reports systems reviewed and no addt'l complaints, except as documented Physical Exam Const alert, oriented x3 and no apparent distress HEENT Head and Scalp: atraumatic Resp normal respiratory effort GI soft to palpation and non-tender Bimanual Exam - Vag & Uterus: uterus non-tender Uterus Palpation: uterus fundus firm (below Umbilicus) Assessment & Plan (1) : QUALIFIERS: Weeks of gestation: 37 weeks Qualified Code(s): Z3A.37 - 37 weeks gestation of COMMENT: genetic, carrier, and ntd screening declined. anatomy nl. GBS NEG (2) Contraception management: COMMENT: considering IUD (3) Abnormal glucose affecting : COMMENT: declined 3 hr GTT, pt has chose to test 4x daily, all WNL. continuing repeat testing PRN. (4) Supervision of other normal : COMMENT: PRR PIETER: 07/28/21 surprise PC: Isela Spouse:Homero (5) H/O gestational diabetes in prior , currently : COMMENT: Nl gct at [facility] (6) Anxiety and depression: COMMENT: currently on Zoloft; 05/25 stable PLAN: s/p PPD # 1 1. routine post delivery care 2. breast feeding- support given 3. rh positive 4. rubella immune
[2021-07-12] MEDS: Sertraline 50 MG Tablet PO (10:26)
[2021-07-12] MEDS: Prenatal Vits Tablet 1 TABLET PO (10:27)
--- NOTE | 2021-07-12 13:30 | CASEMGMT ---
Social Work Brief Assessment Labor and Delivery Unit Refer documentation below for further details. Date of Referral/Notification: 07/12/2021 Time of Referral: 01:54 Referred By: Irma Vera Reason for Referral: MOB with history of anxiety and depression, prescribed Zoloft Date of Intervention: 07/12/2021 Time of Intervention: 13:30 Informant: Medical record and mother of baby (MOB) Assessment: Met with MOB and FOB in room. MOB nursing baby girl, Betty upon this worker entering room. MOB open to meeting with this worker. Introduced role and reason for referral. MOB reports 1-year-old, Isela at home. MOB openly discussed history with anxiety and depression and states is treated with Zoloft and counseling. MOB reports has felt good throughout . MOB reports to have all needs met for baby. MOB has good support from FOB and family. MOB denies any concerns for home going and caring for baby. Nursing updated. No concerns. Plan: Home with resources provided No further needs requested or indicated. Anju Coleman, SPIRITS MODEL, CLINICAL PHARMACY MANAGER
== END 2021-07-12 17:30 | disposition home or self-care (01) | DRG 807 ==
PROVIDERS: Admitting Provider Obstetrics & Gynecology; PCP Student in an Organized Health Care Education/Training Program; Visit Provider Obstetrics & Gynecology
DX: O99.344 Other mental disorders complicating childbirth (principal); Z37.0 Single live birth; O70.1 Second degree perineal laceration during delivery; F32.A Depression, unspecified; F41.9 Anxiety disorder, unspecified; Z20.822 Contact with and (suspected) exposure to COVID-19; Z79.899 Other long term (current) drug therapy; Z3A.37 37 weeks gestation of pregnancy
CPT/HCPCS: 59025; 59050; 82962; 85025; 86850; 86900; 86901; 87426; 99218; J7120; G0378

== ENCOUNTER → 2022-10-03 | Outpatient (CLI) | payer OTHER, SELFPAY ==
[2022-10-07 13:32] LABS: HPV APTIMA, High Risk Negative (Negative)
== END | disposition home or self-care (01) ==
LOC: LABSPEC 11:07
PROVIDERS: PCP Student in an Organized Health Care Education/Training Program; Referring Provider Nurse Practitioner Women's Health; Visit Provider Nurse Practitioner Women's Health
DX: Z12.4 Encounter for screening for malignant neoplasm of cervix (principal)
CPT/HCPCS: 87624; 88175; G0145